=== PATIENT | male | born 1960 | race Caucasian/White ===

== ENCOUNTER 2017-04-06 00:59 | Emergency (ER) | payer OTHER ==
[~2017-04-06] VITALS: Ht 177.8 cm; Wt 81.7 kg
[2017-04-06] MEDS ORDERED: BLOOD PRESSURE MEDS PO (01:13)
[2017-04-06] MEDS ORDERED: PREVACID 24HR15 MG PO (01:13)
[2017-04-06] MEDS ORDERED: SYNTHROID PO (01:15)
[2017-04-06 02:06] LABS: ABSOLUTE EOSINOPHILS 0.2 thou/uL (0.0-0.7); ABSOLUTE LYMPHOCYTES 1.1 thou/uL (0.8-5.3); ABSOLUTE MONOCYTES 0.8 thou/uL (0.0-1.2); BASOPHILS 0.4 %; EOSINOPHILS 2.4 %; HEMATOCRIT 40.5 % (42.0-52.0); HEMOGLOBIN 13.9 gm/dL (14.0-18.0); LYMPHOCYTES 15.3 %; MCHC 34.3 g/dL (28.0-37.0); MCV 87.3 fL (80.0-100.0); MONOCYTES 11.2 %; MPV 6.7 fl. (7.2-11.1); NUCLEATED RBCS 0 /100WBC; PLATELET COUNT* 242 thou/uL (150-400); POLYS 70.7 %; RBC 4.64 mil/uL (4.50-6.00); RDW-CV 12.6 % (10.5-14.5)
[2017-04-06 02:07] LABS: CALCIUM 9.2 mg/dL (8.5-10.1); CREATININE 0.9 mg/dL (0.6-1.3); POTASSIUM 3.5 mmol/L (3.5-5.1)
[2017-04-06 03:34] VITALS: BP 191/101
== END 2017-04-06 03:36 | disposition home or self-care (01) ==
LOC: M.ERS 00:59
PROVIDERS: Emergency Medicine
DX: I10 Essential (primary) hypertension (principal); E87.1 Hypo-osmolality and hyponatremia; Z98.890 Other specified postprocedural states; Z88.0 Allergy status to penicillin; Z91.030 Bee allergy status